=== PATIENT | female | born 1950 | race Caucasian/White ===

== ENCOUNTER → 2017-01-30 | Outpatient (CLI) | payer MEDICARE ==
[~2017-01-30] MED LIST: ATIVAN1 MG PO; CLOBETASOL PROP50 ML TOP; DEXAMETHASONE4 MG PO; EPIPEN 2-P0.3 MG/0.3 INJ; FENTANYL1 EAC3 TOP; KENALOG 0.5% CR15 GM TOP; LIDODERM PATCH 51 EA TOP; MAGIC MOUTHWASH PO; MORPHINE SULFAT30 M1 PO; MORPHINE SULFAT60 MG PO; NEURONTIN 300300 MG PO; NORCO 10-325 T1 EACH PO; PERCOCET 5-3251 EACH PO; TRAMADOL HCL50 MG PO; ZIPSOR25 MG PO
== END ==
LOC: ECHO 11:30
DX: C50.911 Malignant neoplasm of unspecified site of right female breast (principal); R93.0 Abnormal findings on diagnostic imaging of skull and head, not elsewhere classified
CPT/HCPCS: ECHO; 70553; 93306; A9577

== ENCOUNTER → 2017-02-01 | Day surgery (SDC) | payer MEDICARE | END | disposition home or self-care (01) | LOC: OR 05:40 | PROVIDERS: Surgery | PROC: 05HN33Z Insertion of Infusion Device into Left Internal Jugular Vein, Percutaneous Approach (ICD-10-PCS; 2017-02-01) | PROC: B514ZZA Fluoroscopy of Left Jugular Veins, Guidance (ICD-10-PCS; 2017-02-01) | PROC: 0JH60XZ Insertion of Tunneled Vascular Access Device into Chest Subcutaneous Tissue and Fascia, Open Approach (ICD-10-PCS; principal; 2017-02-01 07:30) | DX: C50.911 Malignant neoplasm of unspecified site of right female breast (principal); M54.12 Radiculopathy, cervical region; M19.90 Unspecified osteoarthritis, unspecified site; B02.29 Other postherpetic nervous system involvement; M48.02 Spinal stenosis, cervical region; I10 Essential (primary) hypertension; G89.29 Other chronic pain; Z88.8 Allergy status to other drugs, medicaments and biological substances; Z79.899 Other long term (current) drug therapy; Z79.891 Long term (current) use of opiate analgesic; Z90.710 Acquired absence of both cervix and uterus; Z82.49 Family history of ischemic heart disease and other diseases of the circulatory system; Z83.3 Family history of diabetes mellitus; Z80.8 Family history of malignant neoplasm of other organs or systems | CPT/HCPCS: 71010; 77001; C1769; C1788; J0690; J1644; J2250; J3010; J3370; J7030; J7120 ==

== ENCOUNTER 2017-03-20 17:05 | Inpatient (IN) | payer OTHER, MEDICARE ==
[~2017-03-20] VITALS: Ht 162.6 cm; Wt 72.1 kg
[~2017-03-20 17:05] MED LIST changes: -ATIVAN1 MG PO; -DEXAMETHASONE4 MG PO; -FENTANYL1 EAC3 TOP; -LIDODERM PATCH 51 EA TOP; -MAGIC MOUTHWASH PO; -MORPHINE SULFAT60 MG PO; -NEURONTIN 300300 MG PO
[2017-03-20 20:05] LABS: HEMOGLOBIN 15.7 gm/dl (12.3-15.3); RED BLOOD COUNT 5.02 M/UL (4.00-5.10); WHITE BLOOD COUNT 8.7 K/UL (4.5-11.0)
[2017-03-20 20:22] LABS: BUN/CREATININE RATIO 24 (0-10)
[2017-03-21] MEDS ORDERED: MORPHINE SULFAT60 MG PO (00:35)
[2017-03-21] MEDS ORDERED: DEXAMETHASONE4 MG PO (00:36)
[2017-03-21] MEDS ORDERED: NEURONTIN 300300 MG PO (00:37)
[2017-03-21] MEDS ORDERED: FENTANYL1 EAC3 TOP (00:43)
[2017-03-21] MEDS ORDERED: LIDODERM PATCH 51 EA TOP (00:44)
[2017-03-21] MEDS ORDERED: MAGIC MOUTHWASH PO (00:45)
[2017-03-21 06:52] LABS: RED BLOOD COUNT 4.2 M/UL (4.00-5.10); WHITE BLOOD COUNT 6.6 K/UL (4.5-11.0)
[2017-03-21 07:02] LABS: BUN/CREATININE RATIO 23 (0-10)
--- NOTE | 2017-03-22 00:03 | NUR ---
CONTINUED SKIN ISSUES: BILATERAL HEELS RED, BOGGY (HEEL PROTECTORS) ON PT, LEFTR MID BACK DRY SCABBED AREA (AQUACEL) IN PLACE, LEFT ELBOW DRY, SCABBED AREA, RIGHT GREAT TOE RED BLANCHABLE, RIGHT ARM/HAND SWELLING 3+.
[2017-03-22 04:57] LABS: BUN/CREATININE RATIO 20 (0-10)
--- NOTE | 2017-03-23 01:27 | NUR ---
7PM SHIFT ASSESSMENT AT 1930 - REMAINING SKIN ISSUES: BILATERAL HEELS RED/BOGGY, HEEL PROTECTORS IN PLACE, LEFT MID BACK DRY SCABBED AREA, LEFT ELBOW DRY SCABBED AREAS, RIGHT GREAT TOE RED/BLANCHABLE, RIGHT BALL OF THE FOOT RED/BLANCHABLE, RIGHT ARM 4+ EDEMA PROPPED UP ON PILLOW.
[2017-03-23 04:36] LABS: BUN/CREATININE RATIO 18 (0-10)
[2017-03-23] MEDS ORDERED: ATIVAN1 MG PO (10:01)
== END 2017-03-23 14:55 | DRG 598 ==
LOC: ER1 17:05 → ZEROF 21:21 → MED SURG 4 21:30
PROVIDERS: Internal Medicine; Specialist/Technologist Athletic Trainer; ADMIT Internal Medicine
DX: C50.911 Malignant neoplasm of unspecified site of right female breast (principal); C77.8 Secondary and unspecified malignant neoplasm of lymph nodes of multiple regions; C79.31 Secondary malignant neoplasm of brain; E87.1 Hypo-osmolality and hyponatremia; G89.3 Neoplasm related pain (acute) (chronic); I89.0 Lymphedema, not elsewhere classified; D69.6 Thrombocytopenia, unspecified; R62.7 Adult failure to thrive; I87.2 Venous insufficiency (chronic) (peripheral); I87.8 Other specified disorders of veins; Z51.5 Encounter for palliative care; Z66 Do not resuscitate; R73.9 Hyperglycemia, unspecified; T38.0X5A Adverse effect of glucocorticoids and synthetic analogues, initial encounter; R26.9 Unspecified abnormalities of gait and mobility; G47.00 Insomnia, unspecified; F41.9 Anxiety disorder, unspecified; Z79.52 Long term (current) use of systemic steroids; Z79.891 Long term (current) use of opiate analgesic; Z79.899 Other long term (current) drug therapy; Z88.8 Allergy status to other drugs, medicaments and biological substances; Z90.710 Acquired absence of both cervix and uterus; Z98.890 Other specified postprocedural states
CPT/HCPCS: 36415; 80048; 80053; 82962; 83605; 83735; 84100; 85025; 85027; 96365; 96375; 99284; A6243; J1650; J2270; J3010; J3370; J7030; J7070